=== PATIENT | female | born 1940 | race Caucasian/White ===

== ENCOUNTER 2017-01-16 13:49 | Emergency (ER) | payer OTHER, MEDICAID ==
[2017-01-16 13:53] VITALS: BP 110/76; BMI 31.6
[2017-01-16] MEDS ORDERED: TORADOL 60 MG VIAL IM ONE (14:42)
--- NOTE | 2017-01-16 14:46 | DR.GENAD ---
HPI - PCP Primary Care Physician: DR. PARKER - Complaint/Symptoms Chief Complaint Doctors Comments: Patient states she was watering her sibley on the patio and tripped over the hose and fell landing on her tailbone and left wrist. States she is having left wrist pain when she move her hand and pain in her coccyx area when she sit or move. States the pain is 10 of 10. She denies chest pain, SOB, head, neck or back pain. Chief Complaint:: PATIENT IS C/O LEFT WRIST PAIN. SHE STATED THAT SHE WAS OUT WATERING HER SIBLEY AND FELL ON THE CONCRETE AND HURT HER WRIST. VERY PAINFUL TO MOVE - Nurses notes reviewed Nurses Notes Review: Yes - Source History Provided: Patient - Mode of Arrival Mode of Arrival: Ambulatory - Timing Onset of Chief Complaint: 01/16/17 Came on: Suddenly - Duration Duration: Constant How lon Duration: Days - Location Location: left wrist and buttock pain - Severity Severity: Moderate - Modifying Factors Worsens:: movement Improves:: nothing PMH - PMH Past Medical History: Yes Past Medical History: Anxiety, Arthritis, CHF, Coronary Artery Disease, Dyslipidemia, Hypertension, Hyperthyroidism, Kidney Stones, [place] Past Surgical History: Yes Surgical History: Appendectomy, CABG/Valve Surgery, Hysterectomy, Ortho Surgery - Family History History of Family Medical Conditions: Yes Family Medical History: Cancer, [place] - Social History Does patient currently use any type of tobacco product: No Have you used tobacco products in the last 12 months: No Type of Tobacco Use: None Does any household member use tobacco: No Alcohol Use: None Do you use any recreational Drugs:: No Lives With: Family Lives Where: Home - infectious screening In the last 2 months have you had wt loss of >10#?: NO Have you had fever, night sweats or hemotysis?: No Have you traveled outside the country in the last 6 months?: No Isolation: Standard ROS - Review of Systems Constitutional: No Symptoms Reported. negative: See HPI, Chills, Diaphoresis, Fever, Malaise, Weakness, Irritable, Fatigue, Loss of Appetite, Other Eyes: No Symptoms Reported. negative: See HPI, Eye Pain, Blurred Vision, Tearing, Discharge, Photophobia, Diplopia, Other ENTM: No Symptoms Reported. negative: See HPI, Ear Pain, Ear Discharge, Pulling on Ears, Hearing Loss, Nose Pain, Nose Discharge, Epistaxis, Nose Congestion, Mouth Pain, Mouth Swelling, Loose Teeth, Drooling, Throat Pain, Throat Swelling, Ear Foreign Body Respiratoy: No Symptoms Reported. negative: See HPI, Productive Cough, Non- Productive Cough, Moist Cough, Dry Cough, Hacking Cough, Barking Cough, Brassy Cough, Orthopnea, Short of Breath, Stridor, Wheezing, Hemoptysis, Other Cardiovascular: No Symptoms Reported. negative: See HPI, Chest Pain, Edema, Palpitations, Syncope, Cyanosis, Skin Mottling, Other Gastrointestinal/Abdominal: No Symptoms Reported Genitourinary: No Symptoms Reported. negative: See HPI, Discharge, Dysuria, Frequency, Hematuria, Pain, Bleeding, Other Neurological: No Symptoms Reported. negative: See HPI, Anxiety, Depressed, Emotional Problems, Headache, Numbness, Paresthesia, Pre-existing Deficit, Seizure, Tingling, Tremors, Weakness, Dizziness, Problems Walking, Speech Problem, Other Musculoskeletal: No Symptoms Reported, Left, Forearm (pain), Wrist Integumentary: No Symptoms Reported Hematologic/Lymphatic: No Symptoms Reported Endocrine: No Symptoms Reported Psychiatric: No Symptoms Reported PE - Vital Signs Vitals: Temperature 97.1 F Pulse Rate 91 Respiratory Rate 20 Blood Pressure [Left Arm] 143/70 Blood Pressure 110/76 O2 Sat by Pulse Oximetry 97 - General Limitations: No Limitations General Appearance: Alert, In Distress (moderate) - Head Head Exam: Normal Inspection, Atraumatic, Normocephalic - Eyes Eye exam: Normal Appearance, PERRL, EOMI. negative: Scleral Icterus, Conjunctival Injection, Nystagmus, Miosis, Mydrasis, Periorbital Swelling, Periorbital Tenderness, Other - ENT ENT Exam: Normal Exam, Normal Oropharynx, Normal External Ear Exam, Mucous Membranes Moist, TM's Normal Bilaterally External Ear Exam: Normal External Inspection TM/Canal Exam: Bilateral Normal Nose Exam: Normal Nose Exam Mouth Exam: Normal Inspection Throat Exam: Normal Inspection. negative: Tonsillar Erythema, Tonsillomegaly, Tonsillar Exudate, R Peritonsillar Mass, L Peritonsillar Mass, Muffled Voice, Other - Neck Neck Exam: Normal Inspection, Full ROM, Trachea Midline. negative: Tenderness, Meningismus, Lymphadenopathy, Thyromegaly, Other - Chest Chest Inspection: Normal Inspection, Symmetric Chest Wall Rise. negative: Tenderness, Rash, Abscess, Other - Respiratory Respiratory Exam: Normal Lung Sounds Bilat Respiratory Exam: Bilateral Clear to Auscultation - Cardiovascular Cardiovascular Exam: Regular Rate, Normal Rhythm, Normal Heart Sounds - Abdominal Exam Abdominal Exam: Normal Inspection, Normal Bowel Sounds, Soft Abdominal Tenderness: negative: RUQ, RLQ, LUQ, LLQ, Epigastrium, Suprapubic, Diffuse, Mild, Moderate, Severe, Other - Extremities Extremities Exam: Normal Inspection, Full ROM, Tenderness (left wrist tender with healed deformity; slight swelling; pulse 3+), Normal Capillary Refill. negative: Edema, Joint Swelling, Calf Tenderness, Other - Back Back Exam: Normal Inspection, Full ROM. negative: Tenderness, (R) CVA Tenderness, (L) CVA Tenderness, Muscle Spasm, Paraspinal Tenderness, Vertebral Tenderness, Rashes, (R) Sciatic Notch Tenderness, (L) Sciatic Notch Tendern, (R ) Straight Leg Raise, (L) Straight Leg Raise, Other - Neurologic Neurological Exam: Alert, Oriented X3, CN II-XII Intact, Reflexes Normal. negative: Normal Gait (gait not tested) - Psychiatric Psychiatric Exam: Normal Affect, Normal Mood - Skin Skin Exam: Warm, Dry, Intact, Normal Color ROR - Labs Reviewed Laboratory Results Reviewed?: Yes (all x-ray results reviewed and discussed with patient) - XRAY XRAY Interpreted by: Radiologist (left wrist: Nondisplaced distal radial fracture, transvers in nature) XRAY Findings: Sacrum and coccyx: Mild displacedment of the cocyx posteriorly. No fracture - Diagnosis Discharge Problem: Coccydynia, coccyx displacement Fracture of radius, distal, left, closed Qualifiers: Encounter type: initial encounter Fall at home Qualifiers: Encounter type: initial encounter Qualified Code(s): W19.XXXA - Unspecified fall, initial encounter; Y92.099 - Unspecified place in other non-institutional residence as the place of occurrence of the external cause - Discharge Plan Disposition: HOME, SELF-CARE Condition: Stable Prescriptions: Meloxicam [MOBIC 15 MG *] 15 mg PO DAILY #30 tab - Follow ups/Referrals Follow ups/Referrals: CANDIS PARKER [Primary Care Provider] - 3 days GABE GARCIA [STAFF PHYSICIAN] - 3 days - Instructions Instructions: Radial Fracture, Fall Prevention in the Home, Tailbone Injury
[2017-01-16] MEDS ORDERED: TORADOL 60 MG VIAL ONE (14:52)
--- NOTE | 2017-01-16 15:16 | RAD ---
Clinical history: Status post fall this afternoon, pain left wrist Exam: Left forearm multiple views. Soft tissue swelling is noted along the dorsal aspect of the dist al forearm. The radius and ulna appear intact. No acute fractures seen. Carpal bones appear within n ormal limits as well as visualize metacarpals. Impression: Soft tissue hematoma noted dorsally over the distal forearm. No acute osseous injury see n P Reported By:
--- NOTE | 2017-01-16 15:17 | RAD ---
History: Left wrist pain following injury. Exam: Three view series of the left hand demonstrates a nondisplaced, transverse, left distal radial meta diaphyseal fracture with adjacent soft tissue swelling edema. No other fracture or other acute bony injury is seen. There is mild periarticular osteopenia. There is diffuse periarticular wrist j oint soft tissue swelling edema. The DRUJ is grossly intact, as is the distal ulna. No carpal bone f racture or dislocation is seen. Metacarpal/phalanges appear intact . Impression: Nondisplaced distal radial fracture, transverse in nature. Marked periarticular wrist oliverio int soft tissue swelling edema is also seen. No other fracture/acute bony injury seen. Reported By:
--- NOTE | 2017-01-16 15:18 | RAD ---
Clinical history: Status post fall this afternoon com eyes coccygeal pain Exam: Sacrum and coccyx three views Findings: Degenerative changes are noted the facet joints in the right at L4-L5 and L5-S1. The visua lized sacrum appears markedly osteoporotic. There is minimal displacement of the coccyx posteriorly this may represent mild coccygeal dislocation. CT scan of the a sacrum and coccyx with sagittal bigg nstructed images may be of further use to evaluate this patient if clinically indicated. Impression: Mild displacement of the coccyx posteriorly may be secondary to dislocation. No discrete acute fracture seen. Moderate osteoporosis noted throughout the sacrum. Reported By:
== END 2017-01-16 15:51 | disposition home or self-care (01) ==
LOC: ER 14:02
DX: S52.502A Unspecified fracture of the lower end of left radius, initial encounter for closed fracture (principal); S33.2XXA Dislocation of sacroiliac and sacrococcygeal joint, initial encounter; M53.3 Sacrococcygeal disorders, not elsewhere classified; W19.XXXA Unspecified fall, initial encounter; Y92.9 Unspecified place or not applicable
CPT/HCPCS: 29125; 72220; 73090; 73130; 99282; 99283; J1885

== ENCOUNTER → 2017-03-29 | Outpatient (CLI) | payer OTHER, MEDICAID | LOC: RT 12:39 | PROVIDERS: ATTEND Psychiatry & Neurology Neurology | DX: R41.3 Other amnesia (principal) | CPT/HCPCS: 95819 ==

== ENCOUNTER 2017-04-13 10:51 | Emergency (ER) | payer OTHER, MEDICAID ==
[2017-04-13 10:54] VITALS: BP 134/67; BMI 31.2
--- NOTE | 2017-04-13 11:07 | DR.GENAD ---
HPI - PCP Primary Care Physician: ELENA - Complaint/Symptoms Chief Complaint:: PT C/O RT HIP PAIN. PT STATES SHE WAS GETTING DRESSED THIS AM FOR WORK WHEN SHE PICKED UP HER LEFT LEG AND HEARD HER HIP POP ON THE RIGHT SIDE AND BEGAN TO HAVE PAIN. PT STATES SHE IS HAVING TROUBLE AMBULATING WITHOUT EXCRUCIATING PAIN. - Nurses notes reviewed Nurses Notes Review: Yes - Source History Provided: Patient - Mode of Arrival Mode of Arrival: Ambulatory - Timing Onset of Chief Complaint: 04/13/17 Came on: Suddenly - Duration Duration: Constant How lon Duration: Hours - Location Location: right hip - Severity Severity: Moderate - Modifying Factors Worsens:: movement - Associated Signs and Symptoms Associated Signs and Symptoms: none - Other History Other History: arthritis PMH - PMH Past Medical History: Yes Past Medical History: Anxiety, Arthritis, CHF, Coronary Artery Disease, Dyslipidemia, Hypertension, Hyperthyroidism, Kidney Stones, [place] Past Surgical History: Yes Surgical History: Appendectomy, CABG/Valve Surgery, Hysterectomy, Ortho Surgery - Family History History of Family Medical Conditions: Yes Family Medical History: Cancer, [place] - Social History Does any household member use tobacco: No Alcohol Use: None Do you use any recreational Drugs:: No Lives With: Family Lives Where: Home - infectious screening In the last 2 months have you had wt loss of >10#?: NO Have you had fever, night sweats or hemotysis?: No Have you traveled outside the country in the last 6 months?: No Isolation: Standard ROS - Review of Systems Constitutional: No Symptoms Reported Eyes: No Symptoms Reported ENTM: No Symptoms Reported Respiratoy: No Symptoms Reported Cardiovascular: No Symptoms Reported Gastrointestinal/Abdominal: No Symptoms Reported Genitourinary: No Symptoms Reported Neurological: No Symptoms Reported Musculoskeletal: Hip (right lower jenny pain) Integumentary: No Symptoms Reported Hematologic/Lymphatic: No Symptoms Reported Endocrine: No Symptoms Reported Psychiatric: No Symptoms Reported PE - Vital Signs Vitals: Temperature 97.9 F Pulse Rate 76 Respiratory Rate 20 Blood Pressure [Left Arm] 143/70 Blood Pressure 134/67 O2 Sat by Pulse Oximetry 98 - General Limitations: No Limitations General Appearance: Alert, In No Apparent Distress - Head Head Exam: Normal Inspection - Eyes Eye exam: Normal Appearance, EOMI. negative: Scleral Icterus, Conjunctival Injection - ENT ENT Exam: Normal Exam - Neck Neck Exam: Normal Inspection, Full ROM, Trachea Midline - Respiratory Respiratory Exam: negative: Accessory Muscle Use, Respiratory Distress - Extremities Extremities Exam: Normal Inspection, Full ROM (pain right hip) - Back Back Exam: Normal Inspection, Tenderness (right lower back) - Neurologic Neurological Exam: Alert, Oriented X3, CN II-XII Intact - Psychiatric Psychiatric Exam: Normal Mood - Skin Skin Exam: Intact, Normal Color ROR - XRAY XRAY Interpreted by: Self XRAY Findings: right hip: no fx - Diagnosis Discharge Problem: Hip joint pain Qualifiers: Laterality: right Qualified Code(s): M25.551 - Pain in right hip - Discharge Plan Condition: Stable - Follow ups/Referrals Follow ups/Referrals: CANDIS PARKER [Primary Care Provider] - 3 days - Instructions
[2017-04-13] MEDS ORDERED: TORADOL 60 MG VIAL IM ONE (11:43)
[2017-04-13] MEDS ORDERED: TORADOL 60 MG VIAL ONE (11:44)
--- NOTE | 2017-04-13 13:10 | RAD ---
HISTORY: Right hip pain, nontraumatic Study: Right hip two views, AP pelvis Comparison: None Findings: The pelvic bones and SI joints are osteopenic but intact. The right hip joint is intact. No joint er osions are noted. No fracture, lytic, or blastic lesion is identified. IMPRESSION: Osteopenia No fracture identified Reported By:
[2017-04-13] MEDS ORDERED: DEMEROL INJ IM ONE (13:30)
[2017-04-13] MEDS ORDERED: DEMEROL INJ ONE (13:34)
== END 2017-04-13 13:47 | disposition home or self-care (01) ==
LOC: ER 11:11
DX: M85.80 Other specified disorders of bone density and structure, unspecified site (principal)
CPT/HCPCS: 73501; 96372; 99282; J1885; J2175